=== PATIENT | female | born 1985 | race Caucasian/White ===

== ENCOUNTER → 2016-09-12 12:37 | Emergency (ER) | payer SELFPAY | END | disposition home or self-care (01) | LOC: OHCORT 12:37 | DX: Z02.1 Encounter for pre-employment examination (principal) ==

== ENCOUNTER 2017-08-11 07:19 | Emergency (ER) | payer BC ==
[2017-08-11 07:44] VITALS: BP 130/84
[2017-08-11] MEDS ORDERED: Penicillin VK TAB* 250 MG PO ONE (07:52)
--- NOTE | 2017-08-11 07:52 | UC ---
Dental HPI - HPI Summary HPI Summary: Broke a tooth 8-10 days ago. Left upper 1st molar. Now swelling with more pain. - History of Current Complaint Chief Complaint: UCGI Stated Complaint: FACIAL COMPLAINT Time Seen by Provider: 08/11/17 07:43 Hx Obtained From: Patient Hx Last Menstrual Period: 8 yr ?: No Onset/Duration: Sudden Onset, Worse Since - last 24 hours. Severity: Severe Pain Intensity: 7 Aggravating Factor(s): Chewing Related History: Previous Dental Care on Same Tooth, Swelling - Allergies/Home Medications Allergies/Adverse Reactions: Allergies Allergy/AdvReac Type Severity Reaction Status Date / Time iron supplements Allergy Anaphylatic Uncoded 08/11/17 07:33 Shock Home Medications: Home Medications Iud 1 unit IU DAILY 08/11/17 [History Confirmed 08/11/17] Ibuprofen TAB* [Motrin TAB* 400 MG] 400 mg PO Q6H PRN 08/11/17 [History Confirmed 08/11/17] PMH/Surg Hx/FS Hx/Imm Hx Other Endocrine History: PCOS Neurological History: Seizures - Surgical History Surgical History: Yes Surgery Procedure, Year, and Place: abdominal laparoscopy for cysts - Family History Known Family History: Positive: Cardiac Disease, Hypertension, Diabetes - Social History Occupation: Employed Full-time Lives: With Family Alcohol Use: None Substance Use Type: None Smoking Status (MU): Never Smoked Tobacco Review of Systems Constitutional: Fatigue ENT: Dental Pain Is Patient Immunocompromised?: No All Other Systems Reviewed And Are Negative: Yes Physical Exam Triage Information Reviewed: Yes Appearance: Well-Appearing, Well-Nourished, Pain Distress - mild Vital Signs: Initial Vital Signs Temp 98.5 F 08/11/17 07:37 Pulse 89 08/11/17 07:37 Resp 18 08/11/17 07:37 BP 130/84 08/11/17 07:37 Pulse Ox 99 08/11/17 07:37 Vital Signs Reviewed: Yes Eyes: Positive: Conjunctiva Clear ENT: Positive: Pharynx normal, TMs normal Dental: Positive: Percussion Tenderness @ - #13, Dental Fracture @ - #13, Abscess @ - #13 Neck exam: Normal Respiratory Exam: Normal Cardiovascular Exam: Normal Musculoskeletal Exam: Normal Neurological Exam: Normal Psychological Exam: Normal Skin Exam: Normal Dental Complaint Course/Dx - Differential Dx/Diagnosis Differential Diagnosis/Dx: Dental Abscess, Dental Caries, Fractured Tooth, Gingivitis Provider Diagnoses: Dental abscess Discharge - Discharge Plan Condition: Stable Disposition: HOME Prescriptions: Penicillin VK 500 MG TAB(NF) [Penicillin VK 500 mg Tab] 500 mg PO QID #40 tab Patient Education Materials: Dental Abscess (ED), Penicillin V (By mouth) Referrals: No Primary Care Phys,NOPCP [Primary Care Provider] -
== END 2017-08-11 08:05 | disposition home or self-care (01) ==
LOC: UCCORT 07:19
DX: K04.7 Periapical abscess without sinus (principal)
CPT/HCPCS: 99212; A9270-GY; G0463